=== PATIENT | male | born 1985 | race African-American/Black ===

== ENCOUNTER 2023-07-25 16:46 | Emergency (ER) | payer BC ==
[2023-07-25] MEDS ORDERED: SODIUM CHLORIDE 0.9% 1000 ML INFUS.BAG IV ONE (17:04)
[2023-07-25] MEDS ORDERED: ONDANSETRON 4 MG/2 ML VIAL IVPUSH ONE (17:04)
[2023-07-25 17:08] VITALS: BP 134/90; PULSE 96; RESP 18; TEMP 98.6; BMI 25.1
[2023-07-25] MEDS ORDERED: morphine CARPU-JECT 4 MG/1 ML DISP.SYRIN IVPUSH ONE (17:08)
[2023-07-25] MEDS ORDERED: morphine SULFATE 4 MG/ML VIAL ONE (17:10)
[2023-07-25 17:24] LABS: HEMATOCRIT 48.5 % (35.4-49); MCH 28.7 pg (25.7-33.7); MEAN CELL VOLUME 87.1 fl (80-96); MEAN PLT VOLUME 10.3 fl (7.5-11.1); PLATELET COUNT 169.4 10^3/uL (134-434); RBC 5.57 10^6/uL (4.00-5.60); RDW 15.6 % (11.9-15.9); WHITE BLOOD COUNT 11.4 10^3/uL (4.0-10.8)
[2023-07-25 17:39] LABS: ALBUMIN 4.6 g/dl (3.4-5.0); BILIRUBIN,TOTAL 0.8 mg/dl (0.2-1); BLOOD UREA NITROGEN 13.5 mg/dl (7-18); CALCIUM 9.3 mg/dl (8.5-10.1); CREATININE 1.2 mg/dl (0.6-1.3); POTASSIUM 4.3 mmol/L (3.5-5.1); SGOT/AST 28.4 U/L (15-37); SGPT/ALT 40.9 U/L (7-52); TOT PROT 7.6 g/dl (6.4-8.2)
[2023-07-25 17:51] LABS: EPITHELIAL CELLS FEW /hpf
[2023-07-25 17:58] LABS: PLATELET ESTIMATE ADEQUATE
[2023-07-25] MEDS ORDERED: CEPHALEXIN MONOHYDRATE 500 MG CAPSULE (UD) PO ONE (21:29)
[2023-07-25] MEDS ORDERED: IBUPROFEN 600 MG TABLET (FP) PO ONE ×2 (21:29→21:34)
[2023-07-25] MEDS ORDERED: CEPHALEXIN MONOHYDRATE 500 MG CAPSULE (UD) ONE (21:34)
== END 2023-07-25 21:37 | disposition home or self-care (01) ==
LOC: FER 16:46
PROC: 3E033GC Introduction of Other Therapeutic Substance into Peripheral Vein, Percutaneous Approach (ICD-10-PCS; principal; 2023-07-25)
PROC: 3E033GC Introduction of Other Therapeutic Substance into Peripheral Vein, Percutaneous Approach (ICD-10-PCS; 2023-07-25)
DX: R10.9 Unspecified abdominal pain (principal); R11.0 Nausea; R42 Dizziness and giddiness
CPT/HCPCS: 36415; 74176-TC; 76775-TC; 80053; 81003; 81015; 85027; 99284-25